=== PATIENT | female | born 1975 | race Caucasian/White ===

== ENCOUNTER 2017-01-07 21:24 | Emergency (ER) | payer BC ==
[2017-01-07] MEDS ORDERED: Aspirin 81 MG Tab.Chew PO ONE (21:33)
[2017-01-07] MEDS ORDERED: Sodium Chloride 0.9% 1,000 ML IV ONE (21:33)
[2017-01-07] MEDS ORDERED: LORazepam 2 MG/ML MDV IVPUSH ONE (21:33)
--- NOTE | 2017-01-07 21:36 | EDM.PDOC ---
ED HPI GENERAL MEDICAL PROBLEM - General Chief Complaint: Chest Pain Stated Complaint: CHEST PAIN Time Seen by Provider: 01/07/17 21:34 Source of Information: Reports: Patient - History of Present Illness INITIAL COMMENTS - FREE TEXT/NARRATIVE: HISTORY AND PHYSICAL: History of present illness: []Patient complains of less left-sided chest pain off and on over the last 5 months, worsening over the last week, today she is quite concerned she describes it as a tightness that develops and then releases 2 out of 10 at current no association with shortness of breath or diaphoresis patient does appear quite anxious, she does have a reproducible component was left pectoralis major, on arrival EKG is reassuring no acute ST change, patient does note a tingling sensation in her hands, patient is hyperventilating on arrival No fever nausea vomiting chills sweats Denies chronic medications illness disease or family cardiac history patient denies history of anxiety, she does relate that she just started a new job at a [employer] over the last week Review of systems: As per history of present illness and below otherwise all systems reviewed and negative. Past medical history: As per history of present illness and as reviewed below otherwise noncontributory. Surgical history: As per history of present illness and as reviewed below otherwise noncontributory. Social history: No reported history of drug or alcohol abuse. Family history: As per history of present illness and as reviewed below otherwise noncontributory. Physical exam: HEENT: Atraumatic, normocephalic, pupils reactive, negative for conjunctival pallor or scleral icterus, mucous membranes moist, throat clear, neck supple, nontender, trachea midline. Lungs: Clear to auscultation, breath sounds equal bilaterally, chest nontender. Heart: S1S2, regular, negative for clicks, rubs, or JVD. Abdomen: Soft, nondistended, nontender. Negative for masses or hepatosplenomegaly. Negative for costovertebral tenderness. Pelvis: Stable nontender. Genitourinary: Deferred. Rectal: Deferred. Extremities: Atraumatic, negative for cords or calf pain. Neurovascular unremarkable. Neuro: Awake, alert, oriented. Cranial nerves II through XII unremarkable. Cerebellum unremarkable. Motor and sensory unremarkable throughout. Exam nonfocal. Diagnostics: []Lab as below EKG Chest 1 view Therapeutics: []Aspirin 324 mg chewable Lorazepam 1 mg IV Normal saline bolus Impression: []Reproducible chest wall pain/muscle spasm Anxiety/panic Anxiety about health Definitive disposition and diagnosis as appropriate pending reevaluation and review of above. chest area Pain Score (Numeric/FACES): 3 - Related Data Allergies Allergy/AdvReac Type Severity Reaction Status Date / Time No Known Allergies Allergy Verified 01/07/17 21:29 Home Meds: Home Meds . [No Known Home Meds] 01/07/17 [History] ED ROS GENERAL - Review of Systems Review Of Systems: ROS reveals no pertinent complaints other than HPI. ED EXAM, GENERAL - Physical Exam Exam: See Below Course - Vital Signs Last Recorded V/S: Last Vital Signs Temp 36.6 C 01/07/17 21:29 Pulse 84 01/07/17 21:29 Resp 18 01/07/17 21:29 BP 123/83 01/07/17 21:29 Pulse Ox 98 01/07/17 21:29 - Orders/Labs/Meds Orders: Active Orders 24 hr Category Date Time Status EKG 12 Lead [EKG Documentation Completion] [RC] STAT Care 01/07/17 21:29 Active EKG 12 Lead [EKG Documentation Completion] [RC] STAT Care 01/07/17 22:04 Active Chest 1V Frontal [CR] Stat Exams 01/07/17 21:33 Taken HCG QUALITATIVE,URINE [URCHEM] Stat Lab 01/07/17 21:34 Uncollected Sodium Chloride 0.9% [Normal Saline] 1,000 ml Med 01/07/17 21:33 Active IV STAT Medication Orders Sodium Chloride (Normal Saline) 1,000 mls @ 999 mls/hr IV STAT ONE Stop: 01/07/17 22:33 Last Admin: 01/07/17 21:45 Dose: 999 mls/hr Labs: Laboratory Tests 01/07/17 01/07/17 01/07/17 Range/Units 21:27 21:27 21:27 WBC 11.78 H (4.0-11.0) K/uL RBC 4.52 (4.30-5.90) M/uL Hgb 14.2 (12.0-16.0) g/dL Hct 41.4 (36.0-46.0) % MCV 91.6 (80.0-98.0) fL MCH 31.4 (27.0-32.0) pg MCHC 34.3 (31.0-37.0) g/dL RDW Std Deviation 41.0 (28.0-62.0) fl RDW Coeff of [place] 12 (11.0-15.0) % Plt Count 293 (150-400) K/uL MPV 10.00 (7.40-12.00) fL Neut % (Auto) 51.9 (48.0-80.0) % Lymph % (Auto) 35.9 (16.0-40.0) % [place] % (Auto) 9.2 (0.0-15.0) % Eos % (Auto) 2.7 (0.0-7.0) % Baso % (Auto) 0.3 (0.0-1.5) % Neut # (Auto) 6.1 H (1.4-5.7) K/uL Lymph # (Auto) 4.2 H (0.6-2.4) K/uL [place] # (Auto) 1.1 H (0.0-0.8) K/uL Eos # (Auto) 0.3 (0.0-0.7) K/uL Baso # (Auto) 0.0 (0.0-0.1) K/uL Nucleated RBC % 0.0 /100WBC Nucleated RBCs # 0 K/uL Sodium 142 (136-146) mmol/L Potassium 3.6 (3.5-5.1) mmol/L Chloride 107 (98-110) mmol/L Carbon Dioxide 28 (21-31) mmol/L BUN 15 (6.0-23.0) mg/dL Creatinine 0.8 (0.6-1.5) mg/dL Est Cr Clr Drug Dosing 84.11 mL/min Estimated GFR (MDRD) > 60.0 ml/min Glucose 79 (60-110) mg/dL Calcium 9.5 (8.8-10.8) mg/dL Total Bilirubin 0.4 (0.1-1.5) mg/dL AST 15 (5-40) IU/L ALT 14 (8-54) IU/L Alkaline Phosphatase 59 (40-150) Creatine Kinase (9-236) IU/L CK-MB (CK-2) (0-6.6) ng/ml Troponin I < 0.10 (0.0-0.29) NG/ML Total Protein 7.2 (6.0-8.0) g/dL Albumin 4.3 (3.5-5.0) g/dL Globulin 2.9 (2.0-3.5) g/dL Albumin/Globulin Ratio 1.5 (1.3-2.8) Amylase 49 (10-90) U/L Lipase 25 (7-80) U/L 01/07/17 Range/Units 21:27 WBC (4.0-11.0) K/uL RBC (4.30-5.90) M/uL Hgb (12.0-16.0) g/dL Hct (36.0-46.0) % MCV (80.0-98.0) fL MCH (27.0-32.0) pg MCHC (31.0-37.0) g/dL RDW Std Deviation (28.0-62.0) fl RDW Coeff of [place] (11.0-15.0) % Plt Count (150-400) K/uL MPV (7.40-12.00) fL Neut % (Auto) (48.0-80.0) % Lymph % (Auto) (16.0-40.0) % [place] % (Auto) (0.0-15.0) % Eos % (Auto) (0.0-7.0) % Baso % (Auto) (0.0-1.5) % Neut # (Auto) (1.4-5.7) K/uL Lymph # (Auto) (0.6-2.4) K/uL [place] # (Auto) (0.0-0.8) K/uL Eos # (Auto) (0.0-0.7) K/uL Baso # (Auto) (0.0-0.1) K/uL Nucleated RBC % /100WBC Nucleated RBCs # K/uL Sodium (136-146) mmol/L Potassium (3.5-5.1) mmol/L Chloride (98-110) mmol/L Carbon Dioxide (21-31) mmol/L BUN (6.0-23.0) mg/dL Creatinine (0.6-1.5) mg/dL Est Cr Clr Drug Dosing mL/min Estimated GFR (MDRD) ml/min Glucose (60-110) mg/dL Calcium (8.8-10.8) mg/dL Total Bilirubin (0.1-1.5) mg/dL AST (5-40) IU/L ALT (8-54) IU/L Alkaline Phosphatase (40-150) Creatine Kinase 102 (9-236) IU/L CK-MB (CK-2) 1.3 (0-6.6) ng/ml Troponin I (0.0-0.29) NG/ML Total Protein (6.0-8.0) g/dL Albumin (3.5-5.0) g/dL Globulin (2.0-3.5) g/dL Albumin/Globulin Ratio (1.3-2.8) Amylase (10-90) U/L Lipase (7-80) U/L Meds: Medications Generic Name Dose Route Start Last Admin Trade Name Freq PRN Reason Stop Dose Admin Sodium Chloride 1,000 mls @ 999 mls/hr 01/07/17 21:33 01/07/17 21:45 Normal Saline IV 01/07/17 22:33 999 mls/hr STAT ONE Administration Discontinued Medications Generic Name Dose Route Start Last Admin Trade Name Freq PRN Reason Stop Dose Admin Aspirin 324 mg 01/07/17 21:33 01/07/17 21:45 Aspirin PO 01/07/17 21:34 324 mg ONETIME ONE Administration Lorazepam 1 mg 01/07/17 21:33 01/07/17 21:47 Ativan IVPUSH 01/07/17 21:34 1 mg ONETIME ONE Administration Departure - Departure Time of Disposition: 22:25 Disposition: Home, Self-Care 01 Condition: Good Clinical Impression: Anxiety, Muscle spasm - Discharge Information Referrals: PCP,None [Primary Care Provider] - Forms: ED Department Discharge Additional Instructions: Medication as prescribed Return if symptoms persist or worsen Follow-up with primary care in 2 weeks [facility] [address] [place] [id number] The following information is given to patients seen in the emergency department who are being discharged to home. This information is to outline your options for follow-up care. We provide all patients seen in our emergency department with a follow-up referral. The need for follow-up, as well as the timing and circumstances, are variable depending upon the specifics of your emergency department visit. If you don't have a primary care physician on staff, we will provide you with a referral. We always advise you to contact your personal physician following an emergency department visit to inform them of the circumstance of the visit and for follow-up with them and/or the need for any referrals to a consulting specialist. The emergency department will also refer you to a specialist when appropriate. This referral assures that you have the opportunity for follow-up care with a specialist. All of these measure are taken in an effort to provide you with optimal care, which includes your follow-up. Under all circumstances we always encourage you to contact your private physician who remains a resource for coordinating your care. When calling for follow-up care, please make the office aware that this follow-up is from your recent emergency room visit. If for any reason you are refused follow-up, please contact the [facility] emergency department at and asked to speak to the emergency department charge nurse. - My Orders Last 24 Hours: My Active Orders 01/07/17 21:29 EKG 12 Lead [EKG Documentation Completion] [RC] STAT 01/07/17 21:33 Chest 1V Frontal [CR] Stat Sodium Chloride 0.9% [Normal Saline] 1,000 ml IV STAT 01/07/17 21:34 HCG QUALITATIVE,URINE [URCHEM] Stat 01/07/17 22:04 EKG 12 Lead [EKG Documentation Completion] [RC] STAT - Assessment/Plan Last 24 Hours: My Active Orders 01/07/17 21:29 EKG 12 Lead [EKG Documentation Completion] [RC] STAT 01/07/17 21:33 Chest 1V Frontal [CR] Stat Sodium Chloride 0.9% [Normal Saline] 1,000 ml IV STAT 01/07/17 21:34 HCG QUALITATIVE,URINE [URCHEM] Stat 01/07/17 22:04 EKG 12 Lead [EKG Documentation Completion] [RC] STAT
[2017-01-07 22:01] LABS: CHLORIDE,CL 107 mmol/L (98-110); SODIUM,NA 142 mmol/L (136-146)
[2017-01-07 22:56] VITALS: BP 103/65
--- NOTE | 2017-01-08 10:58 | CR ---
EXAM DATE: 01/07/17 PATIENT'S AGE: 41 Patient: HECTOR CHURCH Facility: [place], [place] Site . Site : [id number] Study: XRay Chest [id number]/3/2017 10:02:01 PM Ordering Physician: Doctor Robles Final Report: INDICATION: Chest pain, shortness of breath, lightheaded, left arm numbness/ tingling TECHNIQUE: Chest radiograph 1 view COMPARISON: None FINDINGS: Cardiovascular and mediastinum: The cardiac silhouette is normal in appearance and size. Mediastinum is within normal limits. Lungs and pleural space: Both lungs are unremarkable in appearance. No sign of pleural effusion. No pneumothorax is seen. Bones and soft tissues: No significant findings. IMPRESSION: 1. No acute cardiopulmonary disease seen. Dictated by: Dung Osei MD @ 01/07/2017 22:12:41 (Electronic Signature) Report Signed by Proxy. [email or web address]
== END 2017-01-07 22:47 | disposition home or self-care (01) ==
LOC: MW.ED 21:24
DX: M62.838 Other muscle spasm (principal); F41.9 Anxiety disorder, unspecified
CPT/HCPCS: 36415; 71010; 80053; 82150; 82550; 82553; 83690; 84484; 85025; 93005; 96361; 96374; 99285; A9270; J2060; J7040; 99282